=== PATIENT | female | born 1940 | race Caucasian/White ===

== ENCOUNTER 2017-12-18 18:45 | Observation (INO) | payer OTHER, BC ==
[2017-12-18] MEDS ORDERED: SODIUM CHLORIDE 1,000 ML IV STA (19:09)
--- NOTE | 2017-12-18 19:10 | PDOC ---
History of Present Illness - General Chief Complaint: Nausea/Vomiting Stated Complaint: DEHYDRATION Time Seen by Provider: 12/18/17 18:46 History Source: Patient, Family (daughter) Exam Limitations: No Limitations - History of Present Illness Initial Comments: 12/18/17 19:24 Pt is a 77yo f with PMH of lung cancer s/p resection, breast cancer in remission since 2013, htn BIBA with daughter because she had a syncopal episode. According to daughter, pt started to take a colon prep solution ( Clenpiq) at 5pm. When the pt went into the bathroom, she called out her daughter stating that she felt weak. Per daughter, pt was holding on to the door and wall unable to move. Daughter sat pt down on the tub and tried to get pt to stand up. Pt then dropped back down and was unresponsive for "less than a second". Daughter was able to get pt to lay down on the bathroom floor. Daughter did not notice any shaking, incontinence, but did say that lips turned blue. Pt is able to recall all of this. Daughter states that pt's apartment was really hot and that pt was sweating today. Denies headache, FND, dizziness, chest pain, shortness of breath, neck pain, abdominal pain, numbness/tingling, changes in vision. Pt had episode of nbnb emesis in ED and nonbloody diarrhea episode in ED No history of blood clots or PE in the past. PCP: [facility] GI: Dr. Hernandez PMH: see hpi PSH: hip arthroplasty 2008, upper r lung resection 2011 Meds: atenolol Allergies: nkda Social: denies Past History - Past Medical History Allergies/Adverse Reactions: Allergies Allergy/AdvReac Type Severity Reaction Status Date / Time No Known Drug Allergies Allergy Verified 12/18/17 18:46 Home Medications: Ambulatory Orders Atenolol/Chlorthalidone [Tenoretic 100/25 Tablet] 1 mg PO DAILY 01/28/14 Anemia: No Asthma: No Cancer: Yes (BREAST CANCER 12/29, HX LUNG CA) Cardiac Disorders: No CVA: No COPD: No CHF: No Dementia: No Diabetes: No GI Disorders: No Disorders: No HTN: Yes Hypercholesterolemia: No Liver Disease: No Seizures: No Thyroid Disease: No - Surgical History Abdominal Surgery: No Appendectomy: No Cardiac Surgery: No Cholecystectomy: No Lung Surgery: Yes (HX LUNG CANCER SX 3 YEARS AGO) Neurologic Surgery: No Orthopedic Surgery: Yes (FX RIGHT WRIST, RIGHT AND LEFT HIP REPLACEMENT) - Suicide/Smoking/Psychosocial Hx Smoking History: Former smoker Have you smoked in the past 12 months: No If you are a former smoker, when did you quit?: 15 YEARS AGO Information on smoking cessation initiated: No Hx Alcohol Use: Yes (WINE Q NIGHT) Drug/Substance Use Hx: No Substance Use Type: Alcohol Hx Substance Use Treatment: No Review of Systems - Review of Systems Constitutional: Yes: Weakness. No: Chills, Fever HEENTM: No: Recent change in vision, Double Vision, Ear Pain, Tinnitus Respiratory: No: Cough, Orthopnea, Shortness of Breath Cardiac (ROS): Yes: Syncope. No: Chest Pain, Lightheadedness, Palpitations ABD/GI: Yes: Diarrhea (in the ED), Vomiting (in the ED). No: Constipated, Nausea : No: Burning, Dysuria, Pain Neurological: No: Headache, Numbness, Paresthesia, Tingling *Physical Exam - Vital Signs Last Vital Signs Temp Pulse Resp BP Pulse Ox 97.5 F L 87 18 140/75 100 12/18/17 18:47 12/18/17 18:47 12/18/17 18:47 12/18/17 18:47 12/18/17 18:47 - Physical Exam General Appearance: Yes: Nourished, Appropriately Dressed. No: Apparent Distress HEENT: positive: EOMI, NOEMÍ, Pharynx Normal. negative: Pale Conjunctivae, Scleral Icterus (R), Scleral Icterus (L) Neck: positive: Trachea midline, Supple. negative: Carotid bruit, Lymphadenopathy (R), Lymphadenopathy (L) Respiratory/Chest: positive: Lungs Clear, Normal Breath Sounds. negative: Rapid RR, Rales, Rhonchi, Stridor, Wheezing Cardiovascular: positive: Regular Rhythm, Regular Rate, S1, S2. negative: Edema , JVD, Murmur, Tachycardia Vascular Pulses: Carotid (R): 2+, Carotid (L): 2+, Dorsalis-Pedis (R): 2+, Doralis-Pedis (L): 2+ Gastrointestinal/Abdominal: positive: Normal Bowel Sounds, Soft. negative: Distended, Guarding, Rebound, Tenderness Musculoskeletal: negative: CVA Tenderness Extremity: positive: Normal Capillary Refill. negative: Pedal Edema, Calf Tenderness Integumentary: positive: Normal Color, Dry, Warm. negative: Cyanotic, Pale, Cold, Diaphoresis Neurologic: positive: commercial real estate paralegal II-XII NML intact, Fully Oriented, Alert, Normal Mood/ Affect, Normal Response, Motor Strength 5/5, Responsive, Finger to Nose. negative: Facial Droop, Numbness, Sensory Deficit, Disoriented Deep Tendon Reflexes: Knee (L): 2+, Knee (R): 2+ ED Treatment Course - LABORATORY CBC & Chemistry Diagram: 12/18/17 19:20 12/18/17 19:20 Medical Decision Making - Medical Decision Making 12/18/17 19:36 Pt is a 77yo f with PMH of lung cancer s/p resection, breast cancer in remission since 2013, htn BIBA with daughter because she had a syncopal episode. Per EMS, pt had orthostatic hypotension. Will do basic labs to see hydration status/anemia. EKG, troponin for cardiac etiology EKG: nsr. no ST elevations, no QT prolongation PE: pt is not tachycardic, not tachypneic, saturating 100% RA, has been cancer free for the past 6 months, no recent travel or surgeries, no hemoptysis, no chest pain, no signs of DVT. Low suspicion for PE. No need for CT head at this time, no injury to head. Most likely syncope due to dehydration. 12/18/17 20:45 Labs showed WBC at 16. Could be due to vomiting/diarrhea. electrolytes showed potassium at 2.4, most likely from use of bowel prep and diarrhea. Awaiting Mg and P. Awaiting UA. Pt will need admission to obs to monitor potassium and diarrhea -Will call Dr. Hernandez to reschedule colonoscopy Pt has had 5+ episodes of watery diarrhea in the ED. 12/18/17 20:54 Dr. Hernandez on board with plan. Awaiting Mg, P, UA 12/18/17 21:07 Mg and P wnl. Pt will be admitted obs for syncope, dehydration and hypokalemia due to GI loss *DC/Admit/Observation/Transfer Diagnosis at time of Disposition: Syncope, Dehydration, Hypokalemia due to loss of potassium - Discharge Dispostion Condition at time of disposition: Stable Decision to Admit order: Yes - Referrals Referrals: Leatha Herron [Other] - Patient Instructions - Post Discharge Activity
[2017-12-18 19:45] LABS: BASO % 0.5 % (0-2.0); EOS % 0.2 % (0-4.5); HEMOGLOBIN 12.8 GM/dL (10.7-15.3); LYMPH % 5.6 % (8-40); MCH 31.8 pg (25.7-33.7); MCHC 34.6 g/dl (32.0-36.0); MEAN CELL VOLUME 92.1 fl (80-96); MONO % 6.8 % (3.8-10.2); NEUT % 86.9 % (42.8-82.8); PLATELET COUNT 354 K/MM3 (134-434); RBC 4.02 M/mm3 (3.60-5.2); RDW 12.7 % (11.6-15.6); WHITE BLOOD COUNT 16.3 K/mm3 (4.0-10.0)
[2017-12-18 20:08] LABS: ALBUMIN 3.6 g/dl (3.4-5.0); ANION GAP 14 MMOL/L (8-16); BLOOD UREA NITROGEN 9 mg/dL (7-18); CHLORIDE 84 mmol/L (98-107); CO2 29 mmol/L (21-32); CREATININE 0.5 mg/dL (0.55-1.02); GLUCOSE,RANDOM 111 mg/dL (74-106); SGPT/ALT 41 U/L (12-78); SODIUM 127 mmol/L (136-145)
[2017-12-18 20:27] LABS: ALK PHOS 55 U/L (45-117); SGOT/AST 30 U/L (15-37); TOT PROT 6.3 g/dl (6.4-8.2)
[2017-12-18 20:30] LABS: POTASSIUM 2.4 mmol/L (3.5-5.1)
[2017-12-18] MEDS ORDERED: POTASSIUM CHLORIDE TABS 20 MEQ TABLET.ER (FP) PO ONE ×2 (20:31→20:40)
--- NOTE | 2017-12-18 20:34 | PDOC ---
Attending Attestation - HPI HPI: 12/18/17 22:27 The patient is a 77 year old female, with a significant past medical history of lung cancer (s/p resection), breast cancer (in remission since 2013), HTN, who presents to the emergency department with, nausea with emesis and near syncope. As per patient, she was doing the preparation for her upcoming colonoscopy tomorrow when she began vomiting profusely and had loose stool. Allergies: NKA Past surgical history: hip arthroplasty (2008), upper right lung resection (2011 ) Primary Care Physician: Dr. Herron GI: Dr. Hernandez - Physicial Exam PE: 12/18/17 22:28 GENERAL: Well-appearing, well-nourished. No apparent distress. HEENT: Normocephalic, atraumatic. PERRL, EOM intact. +CARDIOVASCULAR: Tachycardic after vomiting. Normal S1, S2. Regular rhythm. PULMONARY: Clear to auscultation bilaterally. ABDOMEN: Soft, non-distended, non-tender. EXTREMITIES: Normal ROM in all four extremities. No gross deformities. SKIN: Warm, dry. No rash NEUROLOGICAL: No focal neurological deficits. - Medical Decision Making 12/18/17 20:[address] Hernandez, patient's GI, awaiting call back. 12/18/17 20:[address] Hernandez, patient's GI, case discussed with resident. <Rasheed Beckford - Last Filed: 12/18/17 22:27> - Resident Resident Name: Devorah Kam - ED Attending Attestation I have performed the following: I have examined & evaluated the patient, The case was reviewed & discussed with the resident, I agree w/resident's findings & plan, Exceptions are as noted - Medical Decision Making 12/18/17 22:52 77 yo female p/w near syncopal episode,diarrhea and vomiting s/p colon prep k=2.4 and pt will be potassium supplementation [id number] and pt is receiving NS IVF her GI specialist was contacted and informed of pt;s admission <Sarita Burns - Last Filed: 12/18/17 22:55> Attestations - Attestations 12/18/17 20:36 Documentation prepared by Rasheed Beckford, acting as medical registrar for Sarita Burns MD. <Rasheed Beckford - Last Filed: 12/18/17 22:27>
[2017-12-18] MEDS ORDERED: POTASSIUM CHLORIDE TABS 10 MEQ TABLET.ER (FP) ONE (20:39)
[2017-12-18 20:52] LABS: MAGNESIUM 1.9 mg/dL (1.8-2.4); PHOSPHOROUS 3.2 mg/dL (2.5-4.9)
--- NOTE | 2017-12-18 21:20 | PN ---
Teaching Attending Note Name of Resident: Les Jaimes ATTENDING PHYSICIAN STATEMENT I saw and evaluated the patient. I reviewed the resident's note and discussed the case with the resident. I agree with the resident's findings and plan as documented. SUBJECTIVE: Patient is a 77 year old woman with PMH of right lung cancer s/p upper lobe resection, hip arthroplasty, breast cancer in remission since 2013, and HTN presents after a syncopal episode. According to daughter, patient started to take a colon prep solution at 5pm. Patient called out her daughter from the bathroom stating that she felt weak. Patient was holding on to the door and wall unable to move. Daughter sat her down on the tub and tried to get patient to stand up. Patient then dropped back down and was unresponsive for "less than a second". Daughter did not notice any shaking, incontinence, but did say that lips turned blue. Patient is able to recall all of this. Daughter states that her apartment was really hot and that patient was sweating today. Denies headache, dizziness, chest pain, shortness of breath or abdominal pain. Patient vomited in the ER and had a loose BM. Patient was being investigated by her PCP for electrolyte problems and says she had been feeling more tired than usual in the past few days. OBJECTIVE: Alert Vital Signs Period Temp Pulse Resp BP Sys/Allen Pulse Ox Last 24 Hr 97.5 F 87 18 140/75 100-100 HEENT: No Jaundice, eye redness or discharge, PERRLA, EOMI. Normocephalic, atraumatic. External ears are normal and hearing is grossly intact. No nasal discharge. Neck: Supple, nontender. No palpable adenopathy or thyromegaly. No JVD Chest: Good effort. Clear to auscultation and percussion. Heart: Regular. No S3, rub or murmur Abdomen: Not distended, soft, nontender and no HSM. No rebound or guarding. Normoactive bowel sounds. Ext: Peripheral pulses intact. No leg edema. Skin: Warm and dry. No petechiae, rash or ecchymosis. Neuro: Alert. Oriented x3. Poor recall and memory. CN 2-12 grossly intact. Sensation grossly intact in all four extremities and DTR are symmetric. Home Medications Medication Instructions Recorded Atenolol/Chlorthalidone [Tenoretic 1 mg PO DAILY 01/28/14 100/25 Tablet] Abnormal Lab Results 12/18/17 12/18/17 19:20 19:20 WBC 16.3 H MPV 7.0 L Absolute Neuts (auto) 14.1 H Neutrophils % 86.9 H Lymphocytes % 5.6 L Sodium 127 L Potassium 2.4 L* Chloride 84 L Creatinine 0.5 L Random Glucose 111 H Total Protein 6.3 L ASSESSMENT AND PLAN: 1. Syncope - Though patient is unable to say how much of the bowel prep she actually drank, volume loss, coupled with recent poor oral intake may have led to dehydration, exacerbated by a hot apartment. These factors may have conspired to induce a brief bout of syncope. Hypokalemia and hyponatremia are likely due to chlorthalidone, and her recent weakness may have been partly due to low K+. At this time, there is no indication for brain imaging or extensive syncope workup. Will give IV KCL, recognizing that her total body K+ deficit is likely over 200-250 meq; discontinue chlorthalidone, limit free water intake and give IV NS. Leukocytosis with a left shift is unexplained. No infiltrate on CXR, and she is afebrile. Will get UA, and if negative do CT abd/pelvis. 2. DVT prophylaxis - Lovenox 40 mg SQ q 24 hours. 3. Advance directives - Full code
--- NOTE | 2017-12-18 23:07 | HP ---
CHIEF COMPLAINT: Weakness, Syncope PCP: Dr. Zimmerman HISTORY OF PRESENT ILLNESS: 77 y/o F with a PMHx of RUL Lung ca s/p resection, Left breast ca s/p chemo/ radiation and Lumpectomy, HTN and Short term memory loss, was BIBEMS after a possible syncopal episode. Most of the history was provided by the daughter, Martha, over the phone. Patient is scheduled for a colonoscopy tomorrow morning with Dr. Hernandez. She has been on a clear liquid diet and drank 1 bottle of bowel prep at ~5pm. She then went to use the restroom and after standing up from the toilet, she was unable to move her legs and felt weak. She felt her legs were weight, and her daughter attempted to help her move when the patient slid down and became unresponsive for < 1 second. At this time, her daughter notice a blue tint to her upper lip and called for EMS. Martha mentions that the patient has been feeling weak and generalized soreness for the past few days and that today, her mothers home was hot and the patient was sweating. Daughter denies any jerking movements of the extremities or neck and loss of bowel/bladder control. This is the first time she has felt these symptoms. She denies any hx of passing out, weakness, sensory deficits, visual changes. Patient denies any recent medication changes, changes to her diet, decrease in appetite, ABx use. Denies fevers, chills, chest pain, SOB, urinary urgency, frequency, hematuria, dysuria. She does have a hx of chronic constipation. Her daughter also mention that one of the patients children will visit her daily and give her her medications. She has been able to tolerate PO today however patient has had 1 episode of NBNB vomiting in the ED today. She has also had multiple bouts of diarrhea. Patient has recently started seeing Dr. Chapman (Neurology) for her short term memory loss. She has had an EEG, MRI among other tests done, results pending on the . Since late October, she has seen her PCP multiple times for a low Na and K found on routine blood work. Her daughter says they are monitoring for now. She has not seen on industrial services worker/ophthamologist or battalion fire chief recently. 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 Residence: At home with one daughter living in the basement and one across the street Ambulation: On her own without a cane/walker Family History: Mom: Colon ca Dad: Skin ca Allergies No Known Drug Allergies Allergy (Verified 12/18/17 18:46) HOME MEDICATIONS: Home Medications Medication Instructions Recorded Atenolol/Chlorthalidone [Tenoretic 1 mg PO DAILY 01/28/14 100/25 Tablet] REVIEW OF SYSTEMS CONSTITUTIONAL: Present: generalized weakness Absent: fever, chills, diaphoresis, malaise, loss of appetite, weight change HEENT: Absent: rhinorrhea, nasal congestion, throat pain, throat swelling, difficulty swallowing, mouth swelling, ear pain, eye pain, visual changes CARDIOVASCULAR: Present: syncope, Absent: chest pain, palpitations, irregular heart rate, lightheadedness, peripheral edema RESPIRATORY: Absent: cough, shortness of breath, dyspnea with exertion, orthopnea, wheezing, stridor, hemoptysis GASTROINTESTINAL: Present: vomiting, diarrhea, constipation, Absent: abdominal pain, abdominal distension, nausea, melena, hematochezia GENITOURINARY: Absent: dysuria, frequency, urgency, hesitancy, hematuria, flank pain, genital pain MUSCULOSKELETAL: Absent: myalgia, arthralgia, joint swelling, back pain, neck pain SKIN: Absent: rash, itching, pallor HEMATOLOGIC/IMMUNOLOGIC: Absent: easy bleeding, easy bruising, lymphadenopathy, frequent infections ENDOCRINE: Absent: unexplained weight gain, unexplained weight loss, heat intolerance, cold intolerance NEUROLOGIC: Absent: headache, focal weakness or paresthesias, dizziness, unsteady gait, seizure, mental status changes, bladder or bowel incontinence PSYCHIATRIC: Absent: anxiety, depression, suicidal or homicidal ideation, hallucinations. PHYSICAL EXAMINATION Vital Signs - 24 hr 12/18/17 12/18/17 12/18/17 18:47 19:10 21:45 Temperature 97.5 F L 98.9 F Pulse Rate 87 Pulse Rate [ 75 Left side Supine] Pulse Rate [ 75 Right Radial] Respiratory 18 18 Rate Blood Pressure 140/75 Blood Pressure 120/105 [Left Arm] Blood Pressure 120/105 [Left side Supine] O2 Sat by Pulse 100 100 100 Oximetry (%) 12/18/17 12/18/17 21:46 21:47 Temperature 98.9 F 98.9 F Pulse Rate Pulse Rate [ Left side Supine] Pulse Rate [ 87 89 Right Radial] Respiratory 17 17 Rate Blood Pressure Blood Pressure 130/84 114/75 [Left Arm] Blood Pressure [Left side Supine] O2 Sat by Pulse 100 100 Oximetry (%) GENERAL: Awake, alert, and fully oriented, in no acute distress. HEAD: NCAT EYES: PERRL, EOMI THROAT: Oropharynx clear without exudates. Moist mucous membranes. NECK: No JVD LUNGS: Breath sounds equal, clear to auscultation bilaterally. No wheezes, and no crackles. HEART: Regular rate and rhythm, normal S1 and S2 without murmur ABDOMEN: Soft, nontender, not distended, normoactive bowel sounds, no guarding, no rebound MUSCULOSKELETAL: No CVA tenderness. EXTREMITIES: 2+ pulses, No calf tenderness. Trace peripheral edema. 5/5 Muscle strength throughout NEUROLOGICAL: Cranial nerves II-XII intact. Normal speech. C5-T1 and L4-S1 gross sensation intact SKIN: Warm, dry, no rashes or lesions noted. Laboratory Results - last 24 hr 12/18/17 12/18/17 12/18/17 19:20 19:20 19:20 WBC 16.3 H RBC 4.02 Hgb 12.8 Hct 37.0 MCV 92.1 MCH 31.8 MCHC 34.6 RDW 12.7 Plt Count 354 MPV 7.0 L Absolute Neuts (auto) 14.1 H Neutrophils % 86.9 H Lymphocytes % 5.6 L Monocytes % 6.8 Eosinophils % 0.2 Basophils % 0.5 Nucleated RBC % 0 Sodium 127 L Potassium 2.4 L* Chloride 84 L Carbon Dioxide 29 Anion Gap 14 BUN 9 Creatinine 0.5 L Creat Clearance w eGFR > 60 Random Glucose 111 H Calcium 9.0 Phosphorus Magnesium Total Bilirubin 1.0 AST 30 ALT 41 Alkaline Phosphatase 55 Troponin I < 0.02 Total Protein 6.3 L Albumin 3.6 12/18/17 20:35 WBC RBC Hgb Hct MCV MCH MCHC RDW Plt Count MPV Absolute Neuts (auto) Neutrophils % Lymphocytes % Monocytes % Eosinophils % Basophils % Nucleated RBC % Sodium Potassium Chloride Carbon Dioxide Anion Gap BUN Creatinine Creat Clearance w eGFR Random Glucose Calcium Phosphorus 3.2 Magnesium 1.9 Total Bilirubin AST ALT Alkaline Phosphatase Troponin I Total Protein Albumin Active Medications Enoxaparin Sodium (Lovenox -) 40 mg SQ DAILY [facility] Sodium Chloride (Normal Saline -) 1,000 mls @ 75 mls/hr IV ASDIR AUDREY Last Admin: 12/18/17 23:45 Dose: 75 mls/hr Lisinopril (Prinivil) 5 mg PO DAILY [facility] ASSESSMENT/PLAN: 77 y/o F with a PMHx of RUL Lung ca s/p resection, Left breast ca s/p chemo/ radiation and Lumpectomy, HTN and Short term memory loss, was BIBEMS after a possible syncopal episode, had 1 episode of NBNB vomiting and multiple bouts of diarrhea in the ED today will be admitted to Med-Surg for syncope 1. Syncope - Possibly due to Vasovagal after using the bathroom VS Dehydration in her hot apartment - No indication for brain imaging or other syncope workup at this time - Orthostatics done--Supine 120/105, sitting 130/84, Standing 114/75 - Given IVF - Continue to monitor 2. HypoKalemia, HypoNatremia - Likely due to home dose Chlorothalidone, D/c'ed - Given NS and KDur in ED - Limit free water intake - IV NS @ 75 mls/hr - IV KCL 10 mEq x 3 bags - Repeat BMP after repleting Potassium 3. Leukocytosis - No infilitrate on CXR, Currently AFebrile - Straight Cath for UA completed - C. Diff, Ova and parasite, Stool cultre ordered - CT A/P ordered 4. FEN - IV NS @ 75 mls/hr - Replete K+, Repeat BMP after - Regular diet 5. PPx - DVT: Lovenox Dispo: Admit to med-surg Visit type - Emergency Visit Emergency Visit: Yes ED Registration Date: 12/18/17 Care time: The patient presented to the Emergency Department on the above date and was hospitalized for further evaluation of their emergent condition. - New Patient This patient is new to me today: Yes Date on this admission: 12/19/17 - Critical Care Critical Care patient: No Hospitalist Screening - Colonoscopy Questionnaire Colonoscopy Questionnaire: Colonoscopy Questionnaire - Patient: 50 - 75 years old and never had a screening colonoscopy: Unknown History of colon or rectal polyps, or CA: Unknown History of IBD, Crohn's disease or UC: Unknown History of abdominal radiation therapy as a child: Unknown - Relative: 1 with colon or rectal CA, or polyps at age 60 or younger: Unknown Colon or rectal CA diagnosed at age 45 or younger: Unknown Multiple relatives with colon or rectal CA: Unknown - Outcome: Screening Result: Negative Screen
[2017-12-18 23:35] LABS: URINE APPEARANCE CLEAR; URINE BILIRUBIN NEGATIVE (<2.0 mg/dL); URINE COLOR STRAW; URINE GLUCOSE (UA) NEGATIVE (NEGATIVE); URINE KETONE TRACE (NEGATIVE); URINE LEUK ESTERASE NEGATIVE (NEGATIVE); URINE NITRITE NEGATIVE (NEGATIVE); URINE PROTEIN NEGATIVE (NEGATIVE); URINE UROBILINOGEN NEGATIVE mg/dL (0.2-1.0)
[2017-12-18] MEDS: SODIUM CHLORIDE 1,000 ML IV SCH (23:45)
[2017-12-18 23:49] LABS: EPI CELLS RARE /HPF (FEW)
[2017-12-19] MEDS ORDERED: KCL 10 MEQ IVPB 30 MEQ/300 ML INFUS.BAG IVPB ONE (00:03)
[2017-12-19 01:39] VITALS: BMI 20.7
[2017-12-19] MEDS: KCL 10 MEQ IVPB 10 MEQ/100 ML INFUS.BAG IVPB SCH ×3 (02:21→04:58)
[2017-12-19] MEDS ORDERED: MELATONIN 5 MG TABLETS PO ONE (02:32)
[2017-12-19] MEDS ORDERED: PT OWN MED DRAWER 7, Y5N ONE (02:38)
[2017-12-19 07:25] LABS: BASO % 0.4 % (0-2.0); EOS % 0.4 % (0-4.5); HEMATOCRIT 36.8 % (32.4-45.2); HEMOGLOBIN 12.8 GM/dL (10.7-15.3); LYMPH % 11.9 % (8-40); MCH 31.8 pg (25.7-33.7); MCHC 34.8 g/dl (32.0-36.0); MEAN CELL VOLUME 91.4 fl (80-96); MEAN PLT VOLUME 7.2 fl (7.5-11.1); MONO % 11.4 % (3.8-10.2); NEUT % 75.9 % (42.8-82.8); PLATELET COUNT 360 K/MM3 (134-434); RBC 4.02 M/mm3 (3.60-5.2); RDW 12.5 % (11.6-15.6); WHITE BLOOD COUNT 12.3 K/mm3 (4.0-10.0)
[2017-12-19 07:52] LABS: CHLORIDE 87 mmol/L (98-107); POTASSIUM 3.1 mmol/L (3.5-5.1); SODIUM 127 mmol/L (136-145)
[2017-12-19 08:03] LABS: ALBUMIN 3.8 g/dl (3.4-5.0); ALK PHOS 63 U/L (45-117); ANION GAP 12 MMOL/L (8-16); BILIRUBIN,TOTAL 0.9 mg/dL (0.2-1.0); BLOOD UREA NITROGEN 6 mg/dL (7-18); CALCIUM 9.4 mg/dL (8.5-10.1); CO2 28 mmol/L (21-32); CREATININE 0.4 mg/dL (0.55-1.02); GLUCOSE,RANDOM 92 mg/dL (74-106); MAGNESIUM 1.8 mg/dL (1.8-2.4); PHOSPHOROUS 2.6 mg/dL (2.5-4.9); SGOT/AST 29 U/L (15-37); SGPT/ALT 40 U/L (12-78); TOT PROT 6.7 g/dl (6.4-8.2)
[2017-12-19] MEDS: LISINOPRIL 5 MG TABLET (FP) PO SCH (10:27)
[2017-12-19] MEDS: ENOXAPARIN NA (PORCINE) 40 MG/0.4 ML DISP.SYRIN SQ SCH (10:27)
[2017-12-19] MEDS ORDERED: POTASSIUM CHLORIDE TABS 20 MEQ TABLET.ER (FP) PO ONE (13:10)
[2017-12-19] MEDS ORDERED: NAPH,MB-DB/K PH,MBDB POWDER PACKET PO ONE (13:10)
--- NOTE | 2017-12-19 13:12 | PN ---
Physical Exam: SUBJECTIVE: Patient seen and examined this AM. She states that she is feeling better. She denies loss of consciousness prior to admission but her daughter states that she briefly lost consciousness for about a second but that she did not fall or have any head trauma. Pt seems mildly confused, but does admit that she had been having diarrhea after the prep for her colonoscopy which was in order to determine a possible cause for her chronic constipation. She admits that she is still having some loose nonbloody stools. Currently she denies any fever, chills, weakness, lightheadedness, SOB, Chest pain, abdominal pain, nausea, vomiting. OBJECTIVE: Vital Signs Period Temp Pulse Resp BP Sys/Allen Pulse Ox Last 24 Hr 97.5 F-99.3 F 75-90 17-18 103-149/75-105 98-100 GENERAL: A&O with some mild confusion, no acute distress HEAD: Normocephalic, atraumatic. EYES: PERRL, no scleral icterus EARS, NOSE, THROAT: oropharynx clear without exudates. Moist mucous membranes. NECK: supple without lymphadenopathy, no carotid bruits noted LUNGS: CTA b/l, no crackles or wheezes HEART: Regular rate and rhythm, normal S1 and S2 without murmur ABDOMEN: Soft, nontender to palpation, normoactive bowel sounds MUSCULOSKELETAL: No bony deformities or tenderness. EXTREMITIES: 2+ pulses, warm, well-perfused. No peripheral edema. NEUROLOGICAL: Cranial nerves II-XII grossly intact. Normal speech. PSYCHIATRIC: Cooperative. Good eye contact. Appropriate mood and affect. SKIN: Warm, dry, no rashes or lesions noted Laboratory Results - last 24 hr 12/18/17 12/18/17 12/18/17 19:20 19:20 19:20 WBC 16.3 H RBC 4.02 Hgb 12.8 Hct 37.0 MCV 92.1 MCH 31.8 MCHC 34.6 RDW 12.7 Plt Count 354 MPV 7.0 L Absolute Neuts (auto) 14.1 H Neutrophils % 86.9 H Lymphocytes % 5.6 L Monocytes % 6.8 Eosinophils % 0.2 Basophils % 0.5 Nucleated RBC % 0 Sodium 127 L Potassium 2.4 L* Chloride 84 L Carbon Dioxide 29 Anion Gap 14 BUN 9 Creatinine 0.5 L Creat Clearance w eGFR > 60 Random Glucose 111 H Calcium 9.0 Phosphorus Magnesium Total Bilirubin 1.0 AST 30 ALT 41 Alkaline Phosphatase 55 Troponin I < 0.02 Total Protein 6.3 L Albumin 3.6 Urine Color Urine Appearance Urine pH Ur Specific [place] Urine Protein Urine Glucose (UA) Urine Ketones Urine Blood Urine Nitrite Urine Bilirubin Urine Urobilinogen Ur Leukocyte Esterase Urine WBC (Auto) Urine RBC (Auto) Ur Epithelial Cells 12/18/17 12/18/17 12/19/17 20:35 23:25 06:30 WBC 12.3 H RBC 4.02 Hgb 12.8 Hct 36.8 MCV 91.4 MCH 31.8 MCHC 34.8 RDW 12.5 Plt Count 360 MPV 7.2 L Absolute Neuts (auto) 9.4 H Neutrophils % 75.9 Lymphocytes % 11.9 D Monocytes % 11.4 H Eosinophils % 0.4 D Basophils % 0.4 Nucleated RBC % 0 Sodium Potassium Chloride Carbon Dioxide Anion Gap BUN Creatinine Creat Clearance w eGFR Random Glucose Calcium Phosphorus 3.2 Magnesium 1.9 Total Bilirubin AST ALT Alkaline Phosphatase Troponin I Total Protein Albumin Urine Color Straw Urine Appearance Clear Urine pH 7.0 Ur Specific [place] 1.004 Urine Protein Negative Urine Glucose (UA) Negative Urine Ketones Trace H Urine Blood 1+ H Urine Nitrite Negative Urine Bilirubin Negative Urine Urobilinogen Negative Ur Leukocyte Esterase Negative Urine WBC (Auto) 2 Urine RBC (Auto) 4 Ur Epithelial Cells Rare 12/19/17 06:30 WBC RBC Hgb Hct MCV MCH MCHC RDW Plt Count MPV Absolute Neuts (auto) Neutrophils % Lymphocytes % Monocytes % Eosinophils % Basophils % Nucleated RBC % Sodium 127 L Potassium 3.1 L Chloride 87 L Carbon Dioxide 28 Anion Gap 12 BUN 6 L Creatinine 0.4 L Creat Clearance w eGFR > 60 Random Glucose 92 Calcium 9.4 Phosphorus 2.6 Magnesium 1.8 Total Bilirubin 0.9 AST 29 ALT 40 Alkaline Phosphatase 63 Troponin I Total Protein 6.7 Albumin 3.8 Urine Color Urine Appearance Urine pH Ur Specific [place] Urine Protein Urine Glucose (UA) Urine Ketones Urine Blood Urine Nitrite Urine Bilirubin Urine Urobilinogen Ur Leukocyte Esterase Urine WBC (Auto) Urine RBC (Auto) Ur Epithelial Cells Active Medications Generic Name Dose Route Start Last Admin Trade Name Freq PRN Reason Stop Dose Admin Enoxaparin Sodium 40 mg 12/19/17 10:00 12/19/17 10:27 Lovenox - SQ 40 mg DAILY AUDREY Administration Sodium Chloride 1,000 mls @ 75 mls/hr 12/18/17 23:45 12/18/17 23:45 Normal Saline - IV 75 mls/hr ASDIR AUDREY Administration Lisinopril 5 mg 12/19/17 10:00 12/19/17 10:27 Prinivil PO 5 mg DAILY AUDREY Administration Potassium Chloride 40 meq 12/19/17 13:10 K-Dur - PO 12/19/17 13:11 ONCE ONE Potassium Phos/Sodium Phos 1 packet 12/19/17 13:10 Phos-Nak Packet - PO 12/19/17 13:11 ONCE ONE ASSESSMENT/PLAN: 77 yo female with PMH RUL Lung ca s/p resection, Left breast ca s/p chemo/ radiation and Lumpectomy, HTN and Short term memory loss admitted following a syncopal episode in the bathroom with witnessed LOC for about 1 second. Syncopal episode -Likely secondary to dehydration and hypovolemia secondary to heat and bowel prep -No carotid bruits present, ECG noted to be without any heart block. -Positive orthostatics noted. -Will continue to fluid resuscitate and correct electrolyte abnormalities. -Start regular diet and encourage PO fluid intake in addition to IV fluids -Hold diuretics for now Leukocytosis -Does not seem infectious at this time, Pt is afebrile and diarrhea is likely due to bowel prep for planned colonoscopy. -Leukocytosis is likely reactive -Trending down from 16.3 to 12.3 -CXR noted with no infiltrate -Unlikely C-dif as pt was taking bowel prep and has not had recent antibiotics Electrolyte abnormalities -Hyponatremia - 127 - likely due to volume losses with bowel prep, repleting with NS @ 75 cc/hr Do not increase more than 8 in 24 hour period, d/c fluids if increasing too quickly -Hypokalemia - 2.4 -> 3.1 - most likely due to GI losses from diarrhea Repleted and will recheck BMP in AM -Hypomagneseamia - 1.9 - repleted HTN -Pt takes Tenoretic (Atenolol/Chlorthalidone) 50 At home -chlorthalidone discontinued due to hypovolemia and electrolyte disturbances -Will restart Atenolol 50 mg PO Daily as b.p noted to be elevated this afternoon. Short Term memory loss -Pt is stable and at her baseline today as per the daughter DVT Prophylaxis -Lovenox 40 mg SQ Daily FEN -Fluids: NS @ 75 cc/hr -Electrolytes: As above, BMP in AM -Nutrition: Regular diet Disposition Continue to monitor on Med/Surg, Pt can most likely d/c to home in AM if stable and electrolytes improving Visit type - Emergency Visit Emergency Visit: Yes ED Registration Date: 12/19/17 Care time: The patient presented to the Emergency Department on the above date and was hospitalized for further evaluation of their emergent condition. - New Patient This patient is new to me today: Yes Date on this admission: 12/19/17 - Critical Care Critical Care patient: No
--- NOTE | 2017-12-19 14:24 | PN ---
Teaching Attending Note Name of Resident: Duran Richmond ATTENDING PHYSICIAN STATEMENT I saw and evaluated the patient. I reviewed the resident's note and discussed the case with the resident. I agree with the resident's findings and plan as documented. SUBJECTIVE:feels much better today. no BM since arrival to the ER. denies any recurrent episodes of syncope or near syncope. denies Cp, SOB, fever, chills, N/ V/C/D. was having colonoscopy for evaluation of constipation. did not have diarrhea prior to bowel prep and no abdominal pain OBJECTIVE: Last Vital Signs Temp Pulse Resp BP Pulse Ox 98.6 F 99 H 16 149/89 98 12/19/17 10:18 12/19/17 14:11 12/19/17 14:11 12/19/17 14:11 12/19/17 02:53 General NAD, slightly confused HEENT EOMI, no carotid bruit CV S1 S2 RRR no murmur/rub/gallop Lungs CTA B/L no wheezing/rales/rhonchi Abdomen soft NT/ND ASSESSMENT AND PLAN: 77yo F wtih PMH RUL Lung ca s/p resection, Left breast ca s/p chemo/radiation and Lumpectomy, HTN and Short term memory loss presented to the Er after witnessed syncopal episode after going to the bathroom with LOC 1. Syncope- likely vasovagal vs volume depletion. orthostatics + in the ER. likely due to insensible water loss, diuretic and bowel prep. will cont with IVF and holding of diuretic. 2. Leukocytosis- likley stress induced. trending down. UA and CXR is negative for acute infection. will cancel CT abdomen/pelvis and stool studies as diarrhea likely induced by bowel prep and not from acute infection. would hold abx 3. Diarrhea- induced by bowel prep for scheduled colonosocpy. low susipicion for cdiff or abodminal pathology with lacking of symptoms suggestive of infection or colitis. Gi consulted. likely no intervention at this time. advance diet. 4. Hypokalmeia- due to diarrhea. supplement 5. Hyponatremia- likely volume depletion. cont IVF 6. Short term memory loss- at baseline per daughter present at bedside. can f/u with neuro as outpatient 7. HTN- holding diuretic. liekly not necessary. will cont acei. monitor. conisder increasing acei prior to re-start diuretic in the elderly 8. DVT ppx- lovenox 9. spoke with daughter present at bedside. all questions answered. agrees with plan to monitor overnight and if improved to d/c home tomorrow
--- NOTE | 2017-12-19 16:28 | EKG ---
Test Reason : Blood Pressure : / mmHG Vent. Rate : 082 BPM Atrial Rate : 082 BPM P-R Int : 172 ms QRS Dur : 074 ms QT Int : 376 ms P-R-T Axes : 031 047 075 degrees QTc Int : 439 ms POOR DATA QUALITY, INTERPRETATION MAY BE ADVERSELY AFFECTED NORMAL SINUS RHYTHM WITH SINUS ARRHYTHMIA SEPTAL INFARCT , AGE UNDETERMINED ABNORMAL ECG NO PREVIOUS ECGS AVAILABLE Confirmed by Thomas Howell ([id number]) on 12/19/2017 4:28:27 PM Referred By: Confirmed By:Thomas Howell
[2017-12-19] MEDS: ESCITALOPRAM OXALATE 10 MG TABLET (FP) PO SCH (21:56)
[2017-12-19] MEDS: ATENOLOL 50 MG TABLET (FP) PO SCH (21:56)
[2017-12-20] MEDS ORDERED: MELATONIN 5 MG TABLETS PO ONE (01:19)
[2017-12-20] MEDS: SODIUM CHLORIDE 1,000 ML IV SCH (01:30)
[2017-12-20 07:38] LABS: ANION GAP 7 MMOL/L (8-16); BLOOD UREA NITROGEN 6 mg/dL (7-18); CHLORIDE 96 mmol/L (98-107); CO2 27 mmol/L (21-32); GLUCOSE,RANDOM 100 mg/dL (74-106); MAGNESIUM 1.8 mg/dL (1.8-2.4); PHOSPHOROUS 2.4 mg/dL (2.5-4.9); POTASSIUM 3.5 mmol/L (3.5-5.1); SODIUM 130 mmol/L (136-145)
[2017-12-20 07:39] LABS: CREATININE 0.3 mg/dL (0.55-1.02)
[2017-12-20 07:51] LABS: BASO % 0.5 % (0-2.0); EOS % 0.7 % (0-4.5); HEMATOCRIT 34.8 % (32.4-45.2); HEMOGLOBIN 12.1 GM/dL (10.7-15.3); LYMPH % 11.2 % (8-40); MCH 31.9 pg (25.7-33.7); MCHC 34.6 g/dl (32.0-36.0); MEAN CELL VOLUME 92.3 fl (80-96); MEAN PLT VOLUME 7.5 fl (7.5-11.1); MONO % 11.1 % (3.8-10.2); NEUT % 76.5 % (42.8-82.8); PLATELET COUNT 348 K/MM3 (134-434); RBC 3.77 M/mm3 (3.60-5.2); RDW 12.7 % (11.6-15.6); WHITE BLOOD COUNT 10.2 K/mm3 (4.0-10.0)
[2017-12-20] MEDS ORDERED: PT OWN MED DRAWER 7, Y5N ONE (08:03)
[2017-12-20 08:50] VITALS: TEMP 97.6
[2017-12-20] MEDS ORDERED: MAGNESIUM OXIDE 400 MG TABLET (FP) PO ONE (08:56)
[2017-12-20] MEDS ORDERED: NAPH,MB-DB/K PH,MBDB POWDER PACKET PO ONE (08:56)
[2017-12-20] MEDS: ESCITALOPRAM OXALATE 10 MG TABLET (FP) PO SCH (09:49)
[2017-12-20] MEDS: LISINOPRIL 5 MG TABLET (FP) PO SCH (09:49)
[2017-12-20] MEDS: ENOXAPARIN NA (PORCINE) 40 MG/0.4 ML DISP.SYRIN SQ SCH (09:49)
[2017-12-20] MEDS: ATENOLOL 50 MG TABLET (FP) PO SCH (09:50)
--- NOTE | 2017-12-20 11:44 | DS ---
Physical Exam: SUBJECTIVE: Patient seen and examined this AM. She has no complaints today and says her diarrhea has resolved and that she is tolerating her diet well. Pt has no complaints from overnight, though nursing notes and signout from night team noted. Pt is currently at her baseline mental status similar to yesterday. OBJECTIVE: Vital Signs Period Temp Pulse Resp BP Sys/Allen Pulse Ox Last 24 Hr 97.6 F-98.7 F 82-99 16-22 128-149/62-92 98-98 PHYSICAL EXAM GENERAL: A&O with some mild confusion, no acute distress HEAD: Normocephalic, atraumatic. EYES: PERRL, no scleral icterus EARS, NOSE, THROAT: oropharynx clear without exudates. Moist mucous membranes. NECK: supple without lymphadenopathy, no carotid bruits noted LUNGS: CTA b/l, no crackles or wheezes HEART: Regular rate and rhythm, normal S1 and S2 without murmur ABDOMEN: Soft, nontender to palpation, normoactive bowel sounds MUSCULOSKELETAL: No bony deformities or tenderness. EXTREMITIES: 2+ pulses, warm, well-perfused. No peripheral edema. NEUROLOGICAL: Cranial nerves II-XII grossly intact. Normal speech. PSYCHIATRIC: Cooperative. Good eye contact. Appropriate mood and affect. SKIN: Warm, dry, no rashes or lesions noted LABS Laboratory Results - last 24 hr 12/20/17 12/20/17 06:20 06:20 WBC 10.2 H RBC 3.77 Hgb 12.1 Hct 34.8 MCV 92.3 MCH 31.9 MCHC 34.6 RDW 12.7 Plt Count 348 MPV 7.5 Absolute Neuts (auto) 7.8 Neutrophils % 76.5 Lymphocytes % 11.2 Monocytes % 11.1 H Eosinophils % 0.7 Basophils % 0.5 Nucleated RBC % 0 Sodium 130 L Potassium 3.5 Chloride 96 L Carbon Dioxide 27 Anion Gap 7 L BUN 6 L Creatinine 0.3 L Creat Clearance w eGFR > 60 Random Glucose 100 Calcium 9.0 Phosphorus 2.4 L Magnesium 1.8 IMAGING: CXR: no acute pathology, tortuous aorta, old skeletal trauma ECG: Normal sinus with possible old septal infarct. HOSPITAL COURSE: Date of Admission:12/19/17 Date of Discharge: 12/20/17 77 yo female with PMH RUL Lung ca s/p resection, Left breast ca s/p chemo/ radiation and Lumpectomy, HTN and Short term memory loss admitted following a syncopal episode in the bathroom with witnessed LOC for about 1 second. The patient had completed most of her [place] for an outpatient colonoscopy that was scheduled. The patient had been having diarrhea secondary to the bowel prep and dehydration was most likely exacerbated by the summer heat. During admission she was noted to be hyponatremic and hypokalemic with a low Magnesium and Phosphate as well. She was adequately hydrated and electrolytes were repleted with resolution of all symptoms. Pt is currently with no complaints and medically safe for discharge with close follow up and rescheduling of colonoscopy by her outpatient GI. Pt instructed to drink plenty of fluids and return to ED if symptoms return or worsen. Minutes to complete discharge: 40 Discharge Summary Reason For Visit: DIARRHEA WITH DEHYDRATION,HYPOKALEMIA Current Active Problems Dehydration (Acute) Hypokalemia (Acute) Hyponatremia (Acute) Hypophosphatemia (Acute) Syncope (Acute) Breast cancer (Chronic) Dementia (Chronic) HTN (hypertension) (Chronic) Condition: Stable - Instructions Diet, Activity, Other Instructions: You were admitted to the hospital after a short episode of fainting which was most likely caused by a combination of diarrhea (secondary to colonoscopy bowel prep) and elevated outside temperature. During your admission, you were given intravenous fluids and your electrolytes that had been lost due to diarrhea were replenished. Your blood pressure medication at home contains a diuretic (a "water pill") which likely contributed to your dehydration and electrolyte abnormalities. This was held while you were here and you were given all other home meds. Drink plenty of fluids Follow a low sodium diet Medications: Your blood pressure pill which is a combination pill (Atenolol-Chlorthalidone) was stopped. Please do not take this medication anymore. You will be prescribed just Atenolol 50 mg by mouth daily without the diuretic. You were also started on new blood pressure medication Lisinopril 5 mg one pill by mouth Daily. Other than the changes noted above, please continue your home medications as they are prescribed You were scheduled for an outpatient colonoscopy but were unable to attend due to your admission. It is important that you call your Infection Control Preventionist for another appointment and follow up within 1-2 weeks. You should also be seen by your primary care physician within 1 week. you should have your blood pressure checked and see if you need further changes to your blood pressure medications It is important that you stay adequately hydrated with intake of water. If you start to feel similar symptoms of lightheadedness or fainting again, please call 911 immediately or return to the Emergency Department. Referrals: Leatha Herron [Other] - 1 Week Disposition: HOME - Home Medications Comprehensive Discharge Medication List: Ambulatory Orders Atenolol [Tenormin -] 50 mg PO DAILY #30 tablet 12/20/17 Escitalopram Oxalate [Lexapro -] 5 mg PO BID tablet 12/20/17 Lisinopril [Prinivil] 5 mg PO DAILY #30 tablet 12/20/17 This patient is new to me today: No Emergency Visit: Yes ED Registration Date: 12/19/17 Care time: The patient presented to the Emergency Department on the above date and was hospitalized for further evaluation of their emergent condition. Critical Care patient: No - Discharge Referral Referred to [facility] Med [facility].: No
--- NOTE | 2017-12-20 13:53 | PN ---
Teaching Attending Note Name of Resident: Duran Richmond ATTENDING PHYSICIAN STATEMENT I saw and evaluated the patient. I reviewed the resident's note and discussed the case with the resident. I agree with the resident's findings and plan as documented. SUBJECTIVE:asymptomatic. tolerating diet. denies Cp, SOB, fever, chills, N/V/C/ 2 loose BM since yeseterday OBJECTIVE: Last Vital Signs Temp Pulse Resp BP Pulse Ox 97.6 F 82 18 140/92 98 12/20/17 08:49 12/20/17 08:49 12/20/17 08:49 12/20/17 08:49 12/20/17 02:00 General NAD, slightly confused Abdomen soft NT/ND ASSESSMENT AND PLAN: 77yo F wtih PMH RUL Lung ca s/p resection, Left breast ca s/p chemo/radiation and Lumpectomy, HTN and Short term memory loss presented to the Er after witnessed syncopal episode after going to the bathroom with LOC 1. Syncope- likely vasovagal vs volume depletion. orthostatics + in the ER. no repeat episodes. now asymptomatic. tolerating diet. 2. Leukocytosis- likely stress induced. trending down.no signs of infection. no indication for abx. 3. Diarrhea- induced by bowel prep for scheduled colonosocpy. still having some loose BM which is likely from either bowel prep or contrast she drank yesterday for CT scan which was cancelled.tolerating diet 4. Hypokalmeia- due to diarrhea. Kcl po 5. Hyponatremia- likely volume depletion. improved. can d/c IVF 6. Short term memory loss- at baseline per daughter, can f/u with neuro as outpatient to continue extensive workup 7. HTN-controlled. would cont to hold diuretic at this time. have f/u appt iwth PMD this week to have further adjustment if needed and if diuretic needs to be re-started. 8. DVT ppx- lovenox 9. encourage po intake of water and food. d/c home
[2017-12-20 14:57] VITALS: BP 130/84; PULSE 84
== END 2017-12-20 12:26 | disposition home or self-care (01) ==
LOC: JER 18:45 → INTOOBSV 21:56 → UNDOADMOB 21:56 → OBSVTOIN 21:56 → JERBED 21:56 → J5S 12-19 01:55 → JERBED 12-19 01:55 → J5S 12-19 08:16
PROVIDERS: ADMIT Internal Medicine; ATTEND Internal Medicine
PROC: 3E0337Z Introduction of Electrolytic and Water Balance Substance into Peripheral Vein, Percutaneous Approach (ICD-10-PCS; principal; 2017-12-19)
PROC: 3E013GC Introduction of Other Therapeutic Substance into Subcutaneous Tissue, Percutaneous Approach (ICD-10-PCS; 2017-12-19)
DX: E86.0 Dehydration (principal); R55 Syncope and collapse; E87.6 Hypokalemia; I10 Essential (primary) hypertension; E87.1 Hypo-osmolality and hyponatremia; D72.829 Elevated white blood cell count, unspecified; E83.42 Hypomagnesemia; Z85.3 Personal history of malignant neoplasm of breast; Z85.118 Personal history of other malignant neoplasm of bronchus and lung; Z92.21 Personal history of antineoplastic chemotherapy; Z92.3 Personal history of irradiation; Z87.891 Personal history of nicotine dependence
CPT/HCPCS: 36415; 71045-TC-FY; 80048; 80053; 81003; 81015; 83735; 84100; 84484; 85025; 93005; 93010; 96360; 96372; 99285-25; G0378; J7030